=== PATIENT | male | born 1960 | race Caucasian/White ===

== ENCOUNTER 2023-03-24 16:50 | Inpatient (IN) | payer OTHER ==
[2023-03-24 17:12] LABS: BASOPHILS ABSOLUTE AUTO 0.1 K/mm3 (0.0-0.2); BASOPHILS PERCENT AUTO 0.2 % (0.0-1.0); EOSINOPHILS PERCENT AUTO 0.1 % (0.0-6.0); HEMATOCRIT 45.5 % (42.0-52.0); IMMATURE GRAN PERCENT AUTO 0.5 % (0.0-0.4); LYMPHOCYTES PERCENT AUTO 4.7 % (24.0-44.0); MEAN CORPUSCULAR HEMOGLOBIN 30.2 pg (28.0-32.0); MEAN CORPUSCULAR VOLUME 91.7 fl (83.0-99.0); MEAN PLATELET VOLUME 12.1 fl (9.4-12.4); MONOCYTES ABSOLUTE AUTO 1.4 K/mm3 (0.0-0.8); MONOCYTES PERCENT AUTO 6.6 % (0.0-8.0); NEUTROPHILS PERCENT AUTO 87.9 % (41.0-71.0); PLATELET COUNT,PLT 230 K/mm3 (150-400); RED BLOOD CELL COUNT 4.96 M/mm3 (4.52-5.90); WHITE BLOOD CELL COUNT,WBC 21.59 K/mm3 (3.9-11.3)
[2023-03-24 17:35] LABS: A/G RATIO 0.8 (1-2); ALBUMIN 3.6 g/dl (3.4-5.0); ANION GAP 17.7 (5-15); BUN/CREATININE RATIO 15.8 (14-18); CALCIUM 9.6 mg/dL (8.5-10.1); CREATININE 1.2 mg/dL (0.7-1.3); EST CRCL DRUG DOSING (CG) 58.14 mL/min; MAGNESIUM 1.4 mg/dL (1.8-2.4); POTASSIUM,K 3.7 mEq/L (3.5-5.1); PROTEIN TOTAL,TP 8.3 g/dl (6.4-8.2)
[2023-03-24 17:54] LABS: C-REACTIVE PROTEIN 15.6 mg/dL (<1.0)
[2023-03-24] MEDS ORDERED: cefTRIAXone 2 GM in Sodium Chloride 0.9% 100 ML IV ONE (18:26)
[2023-03-24 20:20] LABS: APPEARANCE,URINE CLEAR (Clear); BILIRUBIN,URINE NEGATIVE (Negative); COLOR,URINE YELLOW (Yellow); GLUCOSE,URINE NEGATIVE (Negative); KETONES,URINE NEGATIVE (Negative); LEUKOCYTE ESTERASE,URINE NEGATIVE (Negative); NITRITE,URINE NEGATIVE (Negative); OCCULT BLOOD,URINE NEGATIVE (Negative); PROTEIN,URINE 2+ (Negative); UROBILINOGEN,URINE 0.2 (0.2-1.0)
[2023-03-24 20:30] LABS: BACTERIA,URINE MODERATE /hpf (FEW); EPITHELIAL CELLS,URINE 0-5 /hpf (0-5); MUCUS,URINE NOT SEEN /hpf (FEW); RBC,URINE NOT SEEN /hpf (0-5); WBC,URINE 0-5 /hpf (0-5)
[2023-03-24 20:33] LABS: BARBITURATE SCREEN,URINE NEGATIVE (CUTOFF=200); BENZODIAZEPINES SCREEN,URINE NEGATIVE (CUTOFF=150); BUPRENORPHINE SCREEN,URINE NEGATIVE (CUTOFF=10); METHADONE SCREEN, URINE NEGATIVE (CUT0FF=200); METHAMPHETAMINES SCREEN, URINE NEGATIVE (CUTOFF=500); OXYCODONE SCREEN,URINE NEGATIVE (CUT0FF=100); THC SCREEN,URINE 20 NG/ML NEGATIVE (CUTOFF=50)
[2023-03-24 20:34] LABS: AMPHETAMINES SCREEN, URINE NEGATIVE (CUTOFF=500)
[2023-03-24 21:00] LABS: CORONAVIRUS COVID-19 NAA NEGATIVE (NEGATIVE); INFLUENZA A NAA NEGATIVE (NEGATIVE); RESPIRATORY SYNCYTIAL VIR NAA NEGATIVE (NEGATIVE)
[2023-03-24] MEDS ORDERED: Lactated Ringers 1,000 ML IV ONE (21:55)
[2023-03-24] MEDS ORDERED: Dexamethasone 4 MG/ML 5 ML MDV IV ONE (22:19)
[2023-03-24] MEDS ORDERED: Ampicillin 2 GM in Sodium Chloride 0.9% 100 ML IV SCH (22:30)
[2023-03-25] MEDS ORDERED: Lactated Ringers 1,000 ML ONE
[2023-03-25] MEDS ORDERED: Dextrose 5%-0.9% NaCl 1,000 ML IV SCH (01:00)
[2023-03-25] MEDS ORDERED: Albuterol 6.7 GM Inhaler INH PRN (06:32)
[2023-03-25] MEDS ORDERED: Cyclobenzaprine 10 MG Tab PO PRN (06:32)
[2023-03-25 06:55] LABS: BASOPHILS ABSOLUTE AUTO 0.1 K/mm3 (0.0-0.2); BASOPHILS PERCENT AUTO 0.2 % (0.0-1.0); EOSINOPHILS PERCENT AUTO 0.1 % (0.0-6.0); HEMATOCRIT 44.8 % (42.0-52.0); IMMATURE GRAN ABSOLUTE AUTO 0.21 K/mm3 (0.00-0.05); IMMATURE GRAN PERCENT AUTO 0.7 % (0.0-0.4); LYMPHOCYTES ABSOLUTE AUTO 1.1 K/mm3 (1.0-4.8); LYMPHOCYTES PERCENT AUTO 3.9 % (24.0-44.0); MEAN CORPUSCULAR HEMOGLOBIN 31.2 pg (28.0-32.0); MEAN CORPUSCULAR HGB CONC 33.5 g/dl (32.0-36.0); MEAN CORPUSCULAR VOLUME 93.1 fl (83.0-99.0); MEAN PLATELET VOLUME 12.3 fl (9.4-12.4); MONOCYTES ABSOLUTE AUTO 1.3 K/mm3 (0.0-0.8); MONOCYTES PERCENT AUTO 4.5 % (0.0-8.0); NEUTROPHILS ABSOLUTE AUTO 25.7 K/mm3 (1.8-7.7); NEUTROPHILS PERCENT AUTO 90.6 % (41.0-71.0); PLATELET COUNT,PLT 219 K/mm3 (150-400); RED BLOOD CELL COUNT 4.81 M/mm3 (4.52-5.90)
[2023-03-25 07:26] LABS: SLIDE REVIEW NORMAL SMEAR
[2023-03-25 07:34] LABS: A/G RATIO 0.7 (1-2); ALBUMIN 3.3 g/dl (3.4-5.0); ANION GAP 17.4 (5-15); BILIRUBIN TOTAL 0.5 mg/dL (0.2-1.0); CALCIUM 9.7 mg/dL (8.5-10.1); CREATININE 1.1 mg/dL (0.7-1.3); EST CRCL DRUG DOSING (CG) 78.88 mL/min; MAGNESIUM 1.8 mg/dL (1.8-2.4); POTASSIUM,K 4.4 mEq/L (3.5-5.1); PROTEIN TOTAL,TP 8.4 g/dl (6.4-8.2)
[2023-03-25 07:55] LABS: C-REACTIVE PROTEIN 24.8 mg/dL (<1.0)
[2023-03-25] MEDS: Lisinopril 10 MG Tab PO SCH (09:07)
[2023-03-25] MEDS: atorvaSTATin 40 MG Tab PO SCH (09:08)
[2023-03-25] MEDS: metFORMIN 500 MG Tab PO SCH ×3 (09:08→20:02)
[2023-03-25] MEDS: Insulin Regular, Human 100 Units/ML 3 ML Vial SUBCUT SCH ×3 (09:12→19:33)
[2023-03-25] MEDS ORDERED: Thiamine 100 MG in Sodium Chloride 0.9% 100 ML IV ONE (09:45)
[2023-03-25] MEDS ORDERED: Thiamine 200 MG/2 ML MDV IVPUSH SCH (10:00)
[2023-03-25] MEDS: Sodium Chloride 0.9% 1,000 ML IV SCH ×2 (10:42→21:12)
[2023-03-25] MEDS: Acetaminophen 325 MG Tab PO PRN ×2 (10:47→21:14)
[2023-03-25] MEDS: Folic Acid 50 MG/10 ML MDV IV SCH (10:47)
[2023-03-25] MEDS ORDERED: Piperacillin/Tazobactam 4.5 GM in Sodium Chloride 0.9% 100 ML IV ONE (14:00)
[2023-03-25] MEDS ORDERED: Morphine 2 MG/ML SYRINGE ONE (14:19)
[2023-03-25] MEDS ORDERED: Lidocaine 1% 5 ML VIAL ONE (14:54)
[2023-03-25] MEDS: Ampicillin 2 GM in Sodium Chloride 0.9% 100 ML IV SCH ×2 (17:05→19:44)
[2023-03-25 17:06] LABS: LACTIC ACID 1.7 mmol/L (0.4-2.0)
[2023-03-25 17:27] LABS: APPEARANCE CSF TUBE 1 CLOUDY (CLEAR)
[2023-03-25] MEDS ORDERED: cefTRIAXone 2 GM in Sodium Chloride 0.9% 100 ML IV SCH (18:00)
[2023-03-25] MEDS: Piperacillin/Tazobactam 4.5 GM in Sodium Chloride 0.9% 100 ML IV SCH (21:11)
[2023-03-26] MEDS: Ampicillin 2 GM in Sodium Chloride 0.9% 100 ML IV SCH ×7 (01:14→23:43)
[2023-03-26] MEDS: Acetaminophen 325 MG Tab PO PRN ×4 (02:55→22:58)
[2023-03-26] MEDS: Piperacillin/Tazobactam 4.5 GM in Sodium Chloride 0.9% 100 ML IV SCH ×2 (05:07→13:14)
[2023-03-26 06:44] LABS: BASOPHILS ABSOLUTE AUTO 0.1 K/mm3 (0.0-0.2); BASOPHILS PERCENT AUTO 0.2 % (0.0-1.0); HEMATOCRIT 39.2 % (42.0-52.0); IMMATURE GRAN ABSOLUTE AUTO 0.18 K/mm3 (0.00-0.05); IMMATURE GRAN PERCENT AUTO 0.7 % (0.0-0.4); LYMPHOCYTES ABSOLUTE AUTO 2.2 K/mm3 (1.0-4.8); LYMPHOCYTES PERCENT AUTO 8.7 % (24.0-44.0); MEAN CORPUSCULAR HEMOGLOBIN 31.3 pg (28.0-32.0); MEAN CORPUSCULAR HGB CONC 33.7 g/dl (32.0-36.0); MEAN CORPUSCULAR VOLUME 92.9 fl (83.0-99.0); MEAN PLATELET VOLUME 12.4 fl (9.4-12.4); NEUTROPHILS ABSOLUTE AUTO 20.9 K/mm3 (1.8-7.7); NEUTROPHILS PERCENT AUTO 82.4 % (41.0-71.0); PLATELET COUNT,PLT 234 K/mm3 (150-400); RED BLOOD CELL COUNT 4.22 M/mm3 (4.52-5.90)
[2023-03-26 06:50] LABS: HEMOGLOBIN 13.2 gm/dl (14.0-18.0)
[2023-03-26 07:05] LABS: A/G RATIO 0.5 (1-2); ALBUMIN 2.6 g/dl (3.4-5.0); BILIRUBIN TOTAL 0.5 mg/dL (0.2-1.0); EST CRCL DRUG DOSING (CG) 86.77 mL/min; MAGNESIUM 1.8 mg/dL (1.8-2.4); PROTEIN TOTAL,TP 7.6 g/dl (6.4-8.2)
[2023-03-26 07:11] LABS: SLIDE REVIEW ABNORMAL SMEAR
[2023-03-26 07:21] LABS: C-REACTIVE PROTEIN 22.4 mg/dL (<1.0)
[2023-03-26] MEDS: Sodium Chloride 0.9% 1,000 ML IV SCH ×2 (07:55→17:28)
[2023-03-26] MEDS: Lisinopril 10 MG Tab PO SCH (08:05)
[2023-03-26] MEDS: metFORMIN 500 MG Tab PO SCH ×3 (08:05→20:22)
[2023-03-26] MEDS: atorvaSTATin 40 MG Tab PO SCH (08:05)
[2023-03-26] MEDS: Thiamine 200 MG/2 ML MDV IVPUSH SCH (08:05)
[2023-03-26] MEDS: Insulin Regular, Human 100 Units/ML 3 ML Vial SUBCUT SCH ×3 (09:00→20:22)
[2023-03-26] MEDS: Folic Acid 50 MG/10 ML MDV IV SCH (09:03)
[2023-03-26] MEDS: Cefepime 2 GM in Sodium Chloride 0.9% 50 ML IV SCH ×2 (16:10→22:56)
[2023-03-26] MEDS: VANCOmycin 1.5 GM/300 ML 1.5 GM in Premix Bag 1 BAG IV SCH (17:27)
[2023-03-26] MEDS: Albuterol 6.7 GM Inhaler INH SCH (20:53)
[2023-03-26] MEDS: Mometasone Furoate HFA 200 mcg/Puff 13 GM Inhaler INH SCH (20:55)
[2023-03-26] MEDS ORDERED: Mometasone Furoate HFA 100mcg/Puff 13 GM Inhaler INH SCH (21:00)
[2023-03-27] MEDS: Sodium Chloride 0.9% 1,000 ML IV SCH (03:33)
[2023-03-27] MEDS: Ampicillin 2 GM in Sodium Chloride 0.9% 100 ML IV SCH ×3 (03:33→11:38)
[2023-03-27] MEDS: VANCOmycin 1.5 GM/300 ML 1.5 GM in Premix Bag 1 BAG IV SCH ×2 (04:07→16:24)
[2023-03-27] MEDS: Acetaminophen 325 MG Tab PO PRN ×3 (05:55→23:38)
[2023-03-27 06:31] LABS: BASOPHILS ABSOLUTE AUTO 0.1 K/mm3 (0.0-0.2); BASOPHILS PERCENT AUTO 0.4 % (0.0-1.0); EOSINOPHILS PERCENT AUTO 0.2 % (0.0-6.0); HEMATOCRIT 42.1 % (42.0-52.0); HEMOGLOBIN 13.9 gm/dl (14.0-18.0); IMMATURE GRAN ABSOLUTE AUTO 0.13 K/mm3 (0.00-0.05); IMMATURE GRAN PERCENT AUTO 0.7 % (0.0-0.4); LYMPHOCYTES ABSOLUTE AUTO 3.3 K/mm3 (1.0-4.8); LYMPHOCYTES PERCENT AUTO 18.2 % (24.0-44.0); MONOCYTES ABSOLUTE AUTO 1.5 K/mm3 (0.0-0.8); MONOCYTES PERCENT AUTO 8.4 % (0.0-8.0); NEUTROPHILS PERCENT AUTO 72.1 % (41.0-71.0); PLATELET COUNT,PLT 252 K/mm3 (150-400); RED BLOOD CELL COUNT 4.48 M/mm3 (4.52-5.90); WHITE BLOOD CELL COUNT,WBC 18.06 K/mm3 (3.9-11.3)
[2023-03-27] MEDS: Cefepime 2 GM in Sodium Chloride 0.9% 50 ML IV SCH ×4 (06:48→23:39)
[2023-03-27 07:05] LABS: A/G RATIO 0.5 (1-2); ALBUMIN 2.7 g/dl (3.4-5.0); BILIRUBIN TOTAL 0.7 mg/dL (0.2-1.0); CALCIUM 9.4 mg/dL (8.5-10.1); EST CRCL DRUG DOSING (CG) 86.77 mL/min; MAGNESIUM 1.9 mg/dL (1.8-2.4); PROTEIN TOTAL,TP 7.9 g/dl (6.4-8.2)
[2023-03-27] MEDS: Thiamine 200 MG/2 ML MDV IVPUSH SCH (08:10)
[2023-03-27] MEDS: metFORMIN 500 MG Tab PO SCH ×2 (08:11→21:06)
[2023-03-27] MEDS: atorvaSTATin 40 MG Tab PO SCH (08:11)
[2023-03-27] MEDS: Lisinopril 10 MG Tab PO SCH (08:13)
[2023-03-27] MEDS: Insulin Regular, Human 100 Units/ML 3 ML Vial SUBCUT SCH ×3 (09:30→20:57)
[2023-03-27] MEDS: Albuterol 6.7 GM Inhaler INH SCH ×2 (09:42→21:08)
[2023-03-27] MEDS: Mometasone Furoate HFA 200 mcg/Puff 13 GM Inhaler INH SCH ×2 (09:43→21:08)
[2023-03-27] MEDS: Folic Acid 50 MG/10 ML MDV IV SCH (09:47)
[2023-03-27] MEDS: Nicotine 14 MG/24 Hr Patch TRDERM SCH (09:48)
[2023-03-27 09:58] LABS: SLIDE REVIEW ABNORMAL SMEAR
[2023-03-27] MEDS: LORazepam 1 MG Tab PO SCH ×2 (12:57→21:06)
[2023-03-27] MEDS: Cyclobenzaprine 10 MG Tab PO PRN ×2 (14:19→23:41)
[2023-03-27] MEDS ORDERED: VANCOmycin 1.5 GM/300 ML 300 ML ONE (16:17)
[2023-03-27] MEDS: cloNIDine 0.1 MG Tab PO PRN ×2 (17:30→23:41)
[2023-03-28] MEDS: VANCOmycin 1.5 GM/300 ML 1.5 GM in Premix Bag 1 BAG IV SCH (04:20)
[2023-03-28] MEDS: Cefepime 2 GM in Sodium Chloride 0.9% 50 ML IV SCH (06:32)
[2023-03-28] MEDS: LORazepam 1 MG Tab PO SCH ×2 (09:18→21:07)
[2023-03-28] MEDS: metFORMIN 500 MG Tab PO SCH ×2 (09:18→21:07)
[2023-03-28] MEDS: Lisinopril 10 MG Tab PO SCH (09:18)
[2023-03-28] MEDS: atorvaSTATin 40 MG Tab PO SCH (09:18)
[2023-03-28] MEDS: Nicotine 14 MG/24 Hr Patch TRDERM SCH (09:19)
[2023-03-28] MEDS: Thiamine 200 MG/2 ML MDV IVPUSH SCH (09:19)
[2023-03-28] MEDS: Mometasone Furoate HFA 200 mcg/Puff 13 GM Inhaler INH SCH ×2 (09:29→21:33)
[2023-03-28] MEDS: Albuterol 6.7 GM Inhaler INH SCH ×2 (09:30→21:33)
[2023-03-28] MEDS: Insulin Regular, Human 100 Units/ML 3 ML Vial SUBCUT SCH ×3 (11:31→18:17)
[2023-03-28] MEDS: Folic Acid 50 MG/10 ML MDV IV SCH (11:32)
[2023-03-28] MEDS: Folic Acid 1 MG Tab PO SCH (12:38)
[2023-03-28 12:46] LABS: BASOPHILS ABSOLUTE AUTO 0.1 K/mm3 (0.0-0.2); EOSINOPHILS ABSOLUTE AUTO 0.2 K/mm3 (0.0-0.4); EOSINOPHILS PERCENT AUTO 1.7 % (0.0-6.0); HEMATOCRIT 43.1 % (42.0-52.0); HEMOGLOBIN 14.5 gm/dl (14.0-18.0); IMMATURE GRAN ABSOLUTE AUTO 0.17 K/mm3 (0.00-0.05); IMMATURE GRAN PERCENT AUTO 1.3 % (0.0-0.4); LYMPHOCYTES PERCENT AUTO 22.9 % (24.0-44.0); MEAN CORPUSCULAR HEMOGLOBIN 30.7 pg (28.0-32.0); MEAN CORPUSCULAR HGB CONC 33.6 g/dl (32.0-36.0); MEAN CORPUSCULAR VOLUME 91.3 fl (83.0-99.0); MEAN PLATELET VOLUME 11.3 fl (9.4-12.4); MONOCYTES ABSOLUTE AUTO 1.3 K/mm3 (0.0-0.8); MONOCYTES PERCENT AUTO 9.9 % (0.0-8.0); NEUTROPHILS ABSOLUTE AUTO 8.3 K/mm3 (1.8-7.7); NEUTROPHILS PERCENT AUTO 63.2 % (41.0-71.0); PLATELET COUNT,PLT 303 K/mm3 (150-400); RED BLOOD CELL COUNT 4.72 M/mm3 (4.52-5.90); WHITE BLOOD CELL COUNT,WBC 13.19 K/mm3 (3.9-11.3)
[2023-03-28 13:09] LABS: A/G RATIO 0.5 (1-2); ALBUMIN 2.7 g/dl (3.4-5.0); ANION GAP 16.8 (5-15); BILIRUBIN TOTAL 0.7 mg/dL (0.2-1.0); BUN/CREATININE RATIO 16.4 (14-18); CALCIUM 9.3 mg/dL (8.5-10.1); CREATININE 1.1 mg/dL (0.7-1.3); EST CRCL DRUG DOSING (CG) 63.43 mL/min; POTASSIUM,K 3.8 mEq/L (3.5-5.1); PROTEIN TOTAL,TP 8.2 g/dl (6.4-8.2)
[2023-03-28] MEDS: Acetaminophen 325 MG Tab PO PRN (16:11)
[2023-03-28] MEDS: cefTRIAXone 2 GM in Sodium Chloride 0.9% 100 ML IV SCH (21:07)
[2023-03-29 05:30] LABS: BASOPHILS ABSOLUTE AUTO 0.1 K/mm3 (0.0-0.2); BASOPHILS PERCENT AUTO 1.1 % (0.0-1.0); EOSINOPHILS ABSOLUTE AUTO 0.3 K/mm3 (0.0-0.4); EOSINOPHILS PERCENT AUTO 2.5 % (0.0-6.0); HEMATOCRIT 44.3 % (42.0-52.0); HEMOGLOBIN 14.9 gm/dl (14.0-18.0); IMMATURE GRAN ABSOLUTE AUTO 0.17 K/mm3 (0.00-0.05); IMMATURE GRAN PERCENT AUTO 1.4 % (0.0-0.4); LYMPHOCYTES ABSOLUTE AUTO 3.2 K/mm3 (1.0-4.8); LYMPHOCYTES PERCENT AUTO 26.6 % (24.0-44.0); MEAN CORPUSCULAR HEMOGLOBIN 30.3 pg (28.0-32.0); MEAN CORPUSCULAR HGB CONC 33.6 g/dl (32.0-36.0); MEAN CORPUSCULAR VOLUME 90.2 fl (83.0-99.0); MEAN PLATELET VOLUME 11.6 fl (9.4-12.4); MONOCYTES ABSOLUTE AUTO 1.3 K/mm3 (0.0-0.8); MONOCYTES PERCENT AUTO 10.7 % (0.0-8.0); NEUTROPHILS ABSOLUTE AUTO 6.8 K/mm3 (1.8-7.7); NEUTROPHILS PERCENT AUTO 57.7 % (41.0-71.0); PLATELET COUNT,PLT 304 K/mm3 (150-400); RED BLOOD CELL COUNT 4.91 M/mm3 (4.52-5.90); WHITE BLOOD CELL COUNT,WBC 11.86 K/mm3 (3.9-11.3)
[2023-03-29 06:01] LABS: A/G RATIO 0.5 (1-2); ALBUMIN 2.6 g/dl (3.4-5.0); ANION GAP 16.6 (5-15); BILIRUBIN TOTAL 0.7 mg/dL (0.2-1.0); CALCIUM 9.3 mg/dL (8.5-10.1); EST CRCL DRUG DOSING (CG) 69.77 mL/min; POTASSIUM,K 3.6 mEq/L (3.5-5.1); PROTEIN TOTAL,TP 8.1 g/dl (6.4-8.2)
[2023-03-29] MEDS: Nicotine 14 MG/24 Hr Patch TRDERM SCH ×2 (08:05→09:56)
[2023-03-29] MEDS: Lisinopril 10 MG Tab PO SCH (08:06)
[2023-03-29] MEDS: atorvaSTATin 40 MG Tab PO SCH (08:09)
[2023-03-29] MEDS: LORazepam 1 MG Tab PO SCH (08:10)
[2023-03-29] MEDS: metFORMIN 500 MG Tab PO SCH (08:10)
[2023-03-29] MEDS: Folic Acid 1 MG Tab PO SCH (08:10)
[2023-03-29] MEDS: cefTRIAXone 2 GM in Sodium Chloride 0.9% 100 ML IV SCH (08:12)
[2023-03-29] MEDS: Insulin Regular, Human 100 Units/ML 3 ML Vial SUBCUT SCH (08:12)
[2023-03-29] MEDS: Albuterol 6.7 GM Inhaler INH SCH (08:33)
[2023-03-29] MEDS: Mometasone Furoate HFA 200 mcg/Puff 13 GM Inhaler INH SCH (08:33)
[2023-03-29] MEDS ORDERED: Thiamine 100 MG Tab PO SCH (21:00)
== END 2023-03-29 12:19 | disposition home or self-care (01) | DRG 871 ==
LOC: JD.ED 16:50 → JD.MS 22:41
PROVIDERS: ADMIT Internal Medicine; ATTEND Internal Medicine
PROC: 3E03329 Introduction of Other Anti-infective into Peripheral Vein, Percutaneous Approach (ICD-10-PCS; 2023-03-24)
PROC: 009U3ZZ Drainage of Spinal Canal, Percutaneous Approach (ICD-10-PCS; principal; 2023-03-25)
DX: A40.8 Other streptococcal sepsis (principal); G93.41 Metabolic encephalopathy; F05 Delirium due to known physiological condition; Z68.41 Body mass index [BMI] 40.0-44.9, adult; R65.20 Severe sepsis without septic shock; G03.9 Meningitis, unspecified; E11.69 Type 2 diabetes mellitus with other specified complication; E66.9 Obesity, unspecified; E78.00 Pure hypercholesterolemia, unspecified; F17.210 Nicotine dependence, cigarettes, uncomplicated; I10 Essential (primary) hypertension; H70.91 Unspecified mastoiditis, right ear; H66.90 Otitis media, unspecified, unspecified ear; Z79.84 Long term (current) use of oral hypoglycemic drugs; Z79.51 Long term (current) use of inhaled steroids; Z79.899 Other long term (current) drug therapy
CPT/HCPCS: 0241U; 36415; 62270; 70450; 70450-26; 70551; 70551-26; 71250; 71250-26; 80053; 80202; 80306; 80307; 81001; 82947; 83605; 83735; 84157; 84484; 85025; 86140; 87040; 87070; 87077; 87102; 87154; 87186; 87205; 87483; 89050; 93005; 93010; 94640; 94760; 94762; 96365; 96375; 99284; 99285-25; A9270-GY; C1758; J0290; J0692; J0696; J1100; J1815-GY; J2270; J2543; J3370; J3411; J3490; J7030; J7042; J7120